=== PATIENT | female | born 1995 | race Caucasian/White ===

== ENCOUNTER 2019-11-28 15:00 | Inpatient (IN) | payer OTHER ==
[~2019-11-28] VITALS: Ht 175.3 cm; Wt 91.6 kg
[2019-12-05] MEDS ORDERED: PRENATA CHEWAB1 EACH PO (11:54)
== END 2019-12-07 11:41 | disposition home or self-care (01) | DRG 807 ==
LOC: LDR 12-05 11:37 → OB/GYN 12-05 11:37
PROVIDERS: ADMIT Specialist
PROC: 10E0XZZ Delivery of Products of Conception, External Approach (ICD-10-PCS; principal; 2019-12-05)
PROC: 0KQM0ZZ Repair Perineum Muscle, Open Approach (ICD-10-PCS; 2019-12-05)
PROC: 10907ZC Drainage of Amniotic Fluid, Therapeutic from Products of Conception, Via Natural or Artificial Opening (ICD-10-PCS; 2019-12-05)
PROC: 4A1HXCZ Monitoring of Products of Conception, Cardiac Rate, External Approach (ICD-10-PCS; 2019-12-05)
DX: O70.1 Second degree perineal laceration during delivery (principal); Z37.0 Single live birth; Z3A.38 38 weeks gestation of pregnancy

== ENCOUNTER 2019-12-05 08:00 | Outpatient (CLI) | payer OTHER ==
[2019-12-05] MEDS ORDERED: PRENATA CHEWAB1 EACH PO (11:54)
== END 2019-12-05 12:02 | disposition still patient (30) ==
LOC: OBS/DEL 08:00
DX: O47.1 False labor at or after 37 completed weeks of gestation (principal)

== ENCOUNTER 2023-08-10 11:00 | Day surgery (SDC) | payer OTHER ==
[~2023-08-10] VITALS: Ht 175.3 cm; Wt 78.5 kg
[~2023-08-10 11:00] MED LIST: PRENATA CHEWAB1 EACH PO
== END 2023-08-10 16:35 | disposition home or self-care (01) ==
LOC: CIR.AMB 11:00
PROVIDERS: ATTEND Specialist
DX: Z30.2 Encounter for sterilization (principal); Z20.822 Contact with and (suspected) exposure to COVID-19